=== PATIENT | male | born 1940 | race Caucasian/White ===

== ENCOUNTER 2020-08-07 09:55 | Emergency (ER) | payer MEDICARE, MEDICAID ==
[~2020-08-07] VITALS: Ht 175.3 cm; Wt 114.5 kg
[2020-08-07] MEDS ORDERED: oxyCODONE/APAP 5/325MG (PERCOCET 5) TABLET PO ONE (10:15)
--- NOTE | 2020-08-07 10:28 | ED General ---
General Stated Complaint: FALL History of Present Illness Date Seen by Provider: Aug 07, 2020 Time Seen by Provider: 10:00 Initial Comments The patient is a 79-year-old male with a history of hypertension, hyperlipidemia and ejs-szqwkvq-vwnnfstqy diabetes. He is not on any blood thinners per his report. His tetanus is up-to-date. He presents for evaluation of a mechanical fall down a flight of stairs in his home occurring just prior to arrival. Patient states he was wearing heavy boots and tripped at the top of the stairs and fell down the stairs onto the concrete floor of his basement. He struck his head but there was no loss of consciousness, nausea or vomiting or amnesia to events. Patient was able to get back up and in fact drove himself here to the emergency department for evaluation. He is alert and oriented and in no acute distress. He reports pain primarily to his left hand and thumb; there is an apparent deformity to the hand and a laceration to the volar aspect of the left thumb. There is also contusion and abrasion noted to his right forehead and right periorbital region. He has abrasions to his bilateral knees and to his right elbow as well but reports that these do not hurt. He denies weakness, numbness, tingling, neck stiffness/pain/meningismus, vision changes, shortness of breath, chest or chest wall pain, abdominal pain, back pain, hip pain, pain to right arm or bilateral legs. Vital signs are appropriate here. The patient ambulated in with a narrow, steady gait. Allergies and Home Medications Allergies Coded Allergies: No Known Drug Allergies (Unverified , 08/07/20) Patient Home Medication List Home Medication List Reviewed: Yes Review of Systems Review of Systems Constitutional: see HPI All Other Systems Reviewed Negative Unless Noted: Yes (Negative excepted noted.) Past Tsemmzb-Moduua-Rbppbn Hx Past Med/Social Hx: Reviewed Nursing Past Med/Soc Hx Patient Social History Recent Foreign Travel: No Contact w/Someone Who Travel: No Family Medical History Reviewed Nursing Family Hx Physical Exam Vital Signs Vital Signs - First Documented Capillary Refill : Height, Weight, BMI Height: '" Weight: lbs. oz. kg; BMI Method: General Appearance: No Apparent Distress Comments This is an elderly male appearing nontoxic and in no acute distress. Head is normocephalic and with right forehead and right periorbital contusion, abrasion and mild swelling. No hemotympanum bilaterally. No instability of the midface. No malocclusion. No signs basilar fracture. No other signs of trauma to head or scalp or face or neck. Neck is supple and entirely nontender. Oropharynx is moist. No dental injury noted. Examination of the back reveals no erythema, warmth, swelling, step-offs or deformities and no abrasions or contusions seen. Lungs are clear to auscultation at all stations. Examination of the chest wall reveals no erythema, warmth, swelling, abrasion, contusion, paradoxical movement, crepitus or other acute abnormality. Abdomen is soft, nontender and nondistended. Skin is warm and dry without cyanosis, clubbing or edema. Psychiatrically, the patient demonstrates appropriate mood and affect and is alert. Neurologically, cranial nerves II through XII are intact and there are no lateralizing deficits noted. Speech is normal. Leg which is normal. Coordination is normal. There is no dysmetria uzkubj-lv-dhiv or hiyz-qh-ewni bilaterally. Strength is 5 out of 5 in all joints of bilateral upper and lower extremity. Sensation is intact to light touch in bilateral upper and lower extremities. Patient and relates with a narrow, steady gait here in the emergency department. He is alert and oriented 4. From a musculoskeletal standpoint, there is an apparent closed deformity to the dorsal aspect of the left hand, radial side, with associated tenderness. There is a hemostatic linear transverse laceration to the volar aspect of the left thumb distal to the IP joint on that side. Left thumb and rest of left upper extremity is neurovascularly intact with strength 5 out of 5, sensation intact to light touch in all nerve distortions, radial pulse 2+, capillary refill less than 2 seconds, hand warm and well-perfused. No pain with ranging of any other joint of the left or right upper extremities or bilateral lower extremities, all of which are neurovascularly intact with 2+ and equal DP, PT and radial pulses noted. There are mild abrasions noted to bilateral knees without any discomfort with ranging noted. There is a skin tear noted to the right upper arm above the elbow without any discomfort or pain with ranging of that extremity noted. Procedures/Interventions Wound Location: Other Other Wound Location Left thumb Wound's Depth, Shape: linear, sub Q Wound Explored: no foreign body removed Irrigated w/ Saline (ccs): 1000 Anesthesia: Lidocaine w/ Epi Volume Anesthetic (ccs): 6 Suture: Ethlion Suture Size: 4-0 Number of Sutures: 13 Layer Closure?: 1 Progress Tolerated well, no complications, NVI to L thumb tip and rest of L hand post- procedure Splinting and Joint Reduction : Location: Left thumb IP joint Pre-Proc Neuro Vasc Exam: normal Post-Proc Neuro Vasc Exam: normal Reduction Attempts: 1 Pre-Procedure NV Exam: Yes post joint reduction film: joint reduced Arm Sling: Large Splints: Thumb/Wrist Spica Progress/Results/Core Measures Suspected Sepsis SIRS Temperature: Pulse: Respiratory Rate: Laboratory Tests 08/07/20 11:40: White Blood Count 8.6 Blood Pressure / Mean: Laboratory Tests 08/07/20 11:40: Creatinine 1.06, INR Comment 1.0, Platelet Count 174, Total Bilirubin 0.3 Results/Orders Lab Results Laboratory Tests Test 08/07/20 11:40 Range/Units White Blood Count 8.6 4.3-11.0 10^3/uL Red Blood Count 4.59 4.35-5.85 10^6/uL Hemoglobin 13.6 13.3-17.7 G/DL Hematocrit 41 40-54 % Mean Corpuscular Volume 90 80-99 FL Mean Corpuscular Hemoglobin 30 25-34 PG Mean Corpuscular Hemoglobin Concent 33 32-36 G/DL Red Cell Distribution Width 14.4 10.0-14.5 % Platelet Count 174 130-400 10^3/uL Mean Platelet Volume 10.6 H 7.4-10.4 FL Prothrombin Time 13.5 12.2-14.7 SEC INR Comment 1.0 0.8-1.4 Activated Partial Thromboplast Time 27 24-35 SEC Sodium Level 142 135-145 MMOL/L Potassium Level 4.3 3.6-5.0 MMOL/L Chloride Level 107 98-107 MMOL/L Carbon Dioxide Level 25 21-32 MMOL/L Anion Gap 10 5-14 MMOL/L Blood Urea Nitrogen 21 H 7-18 MG/DL Creatinine 1.06 0.60-1.30 MG/DL Estimat Glomerular Filtration Rate > 60 BUN/Creatinine Ratio 20 Glucose Level 102 70-105 MG/DL Calcium Level 9.6 8.5-10.1 MG/DL Corrected Calcium 9.3 8.5-10.1 MG/DL Total Bilirubin 0.3 0.1-1.0 MG/DL Aspartate Amino Transf (AST/SGOT) 26 5-34 U/L Alanine Aminotransferase (ALT/SGPT) 26 0-55 U/L Alkaline Phosphatase 90 40-136 U/L Total Protein 7.3 6.4-8.2 GM/DL Albumin 4.4 3.2-4.5 GM/DL My Orders Orders - SREEDHAR TREJO MD Hand 3 View Left (08/07/20 10:15) Finger(S) (08/07/20 10:15) Cbc No Diff (08/07/20 10:15) Comprehensive Metabolic Panel (08/07/20 10:15) Protime With Inr (08/07/20 10:15) Partial Thromboplastin Time (08/07/20 10:15) Oxycodone/Apap 5/325mg Tablet (Percocet (08/07/20 10:15) Ct Head/Face/Cervical Wo (08/07/20 10:15) Lidocaine/Epi 2% 1:100,000 (Xylocaine/Ep (08/07/20 11:35) Lidocaine/Epi 2% 1:100,000 (Xylocaine/Ep (08/07/20 11:45) Lidocaine/Epi 2% 1:100,000 (Xylocaine/Ep (08/07/20 12:00) Cephalexin Capsule (Keflex Capsule) (08/07/20 12:00) Finger(S) (08/07/20 12:39) Medications Given in ED Current Medications Medications Dose Ordered Sig/Ivan Route Start Time Stop Time Status Last Admin Dose Admin Lidocaine/ Epinephrine 20 ml ONCE ONCE INJ 08/07/20 12:00 08/07/20 12:01 DC 08/07/20 12:21 20 ML Oxycodone/ Acetaminophen 1 tab ONCE ONCE PO 08/07/20 10:15 08/07/20 10:18 DC 08/07/20 11:11 1 TAB Vital Signs/I&O 08/07/20 08/07/20 11:41 11:41 Temp 36.6 36.6 Pulse 92 92 Resp 18 18 B/P (MAP) 158/67 (97) 158/67 (97) Pulse Ox 98 98 O2 Delivery Room Air Room Air Capillary Refill : Progress Note : Time: 10:28 Progress Note Completely well-appearing elderly male, community 12 are not on blood thinners, who is ambulatory into the emergency department after a fall down a flight of stairs in his home. Mr. Garcia appears wholly nontoxic but certainly a dangerous mechanism for his fall. We will check basic labs and coags and will obtain advanced imaging of the head, maxillofacial region and cervical spine as noted as well as plain films of the left upper extremity. Tetanus is already up-to-date. We'll give some pain medication for discomfort. We will then reevaluate. 1130: Patient is resting comfortably in no acute distress upon reassessment. Advanced imaging of the head, maxillofacial region and cervical spine is negative for acute traumatic injury. Imaging of the left hand does show a dislo cation of the IP joint of the left thumb; give associated laceration, we'll consider this an open dislocation and will cover with Keflex. Patient also has a second metacarpal fracture on that side. We will reduce the patient's dislocation, repair the associated laceration and splint the hand. He will be provided with a sling and will then follow-up in the orthopedic office after the weekend. He understands and agrees with this plan of care. 1300: Dislocation of first interphalangeal joint reduced by me as per procedure note. Patient tolerated well and repeat finger films demonstrate reduction of dislocation. Avulsion fractures noted to the joint in question on repeat imaging, along with questionable first metacarpal fracture along with known second metacarpal fracture. We will place splint and put the patient in a sling for comfort, we'll cover as above with Keflex for open fracture/dislocation of the thumb and will refer back to primary care for very close follow-up after the weekend, as well as to orthopedics in [place]. Patient understands that if he feels worse is that of better or develops other new symptoms of concern in the meantime that he will need to return to the emergency department immediately for reevaluation. All questions are answered. Diagnostic Imaging Diagonstic Imaging: CT Comments Date of Exam:08/07/20 CT HEAD/FACE/CERVICAL WO PROCEDURE: CT head, face, and cervical spine without contrast. TECHNIQUE: Multiple contiguous axial images were obtained through the head, neck, and facial bones without the use of intravenous contrast. Sagittal and coronal reformations through the cervical spine and facial bones were also performed. Auto Exposure Controls were utilized during the CT exam to meet ALARA standards for radiation dose reduction. DATE: August 07, 2020 COMPARISON: None. INDICATION: 79-year-old male, fall downstairs. Head, face, neck pain. FINDINGS: There is no identified skull fracture. The ventricles and cerebral spinal fluid spaces are of normal size and configuration for the patient's age. There is no mass effect or midline shift. There is no acute intracranial hemorrhage. There is no abnormal extra-axial fluid collection. The mandible is intact. The temporomandibular joints are incompletely imaged although are not obviously dislocated. There is no identified displaced nasal bone fracture. There is no identified maxillofacial bone fracture. There is a sclerotic lesion in the right ethmoidal air cells which may relate to a small osteoma. There is no air-fluid level in the paranasal sinuses. The globes are grossly intact. There is no retro-orbital hematoma. There is no identified facet joint subluxation or dislocation. There is no asymmetric widening of the cervical disc spaces. There is no prominent prevertebral soft tissue swelling. There are multilevel moderate to severe disc degenerative changes of the cervical spine with multilevel posterior disc osteophyte complexes. CT is limited for assessment of disc pathology as well as additional nonbloody causes of pathology in the spinal canal. There is no identified acute fracture of the cervical spine. The visualized portions of the lung apices are clear. There are bilateral carotid vascular calcifications. IMPRESSION: 1. No identified acute intracranial abnormality. 2. No identified acute maxillofacial bone fracture. 3. No identified acute posttraumatic abnormality of the cervical spine. 4. Multilevel degenerative changes of the cervical spine. Dictated by: Dictated on workstation # [id number] Dict: 08/07/20 1057 Trans: 08/07/20 1130 [facility] [id number] Interpreted by: REJI DIEGO MD Electronically signed by: REJI DIEGO MD 08/07/20 1130 NAME: TOD GARCIA [facility] REC#: [id number] PT STATUS: REG ER : 1940 PHYSICIAN: SREEDHAR TREJO MD ADMIT DATE: 08/07/20/ER FS Signed Date of Exam:08/07/20 HAND 3 VIEW LEFT EXAMINATION: Left hand radiographs, 3 views. COMPARISON: None. HISTORY: 79-year-old male, injury. FINDINGS: The first distal phalanx is dorsally dislocated at the first interphalangeal joint. There is an ossification adjacent to the first interphalangeal joint which may relate to a displaced fracture fragment. There is a comminuted and displaced and abnormally angulated fracture centered in the region of the distal metaphysis of the second metacarpal without identified intra-articular fracture extension. IMPRESSION: 1. The first distal phalanx is dorsally dislocated at the first interphalangeal joint. Ossification adjacent to the first interphalangeal joint likely relates to a displaced fracture fragment. 2. Comminuted, displaced, and abnormally angulated fracture of the distal aspect of the second metacarpal without identified intra-articular fracture extension. Dictated by: Dictated on workstation # [id number] Dict: 08/07/20 1106 Trans: 08/07/20 1130 [facility] [id number] Interpreted by: REJI DIEGO MD Electronically signed by: REJI DIEGO MD 08/07/20 1130 NAME: TOD GARCIA [facility] REC#: [id number] PT STATUS: REG ER : 1940 PHYSICIAN: SREEDHAR TREJO MD ADMIT DATE: 08/07/20/ER FS Signed Date of Exam:08/07/20 HAND 3 VIEW LEFT EXAMINATION: Left hand radiographs, 3 views. COMPARISON: None. HISTORY: 79-year-old male, injury. FINDINGS: The first distal phalanx is dorsally dislocated at the first interphalangeal joint. There is an ossification adjacent to the first interphalangeal joint which may relate to a displaced fracture fragment. There is a comminuted and displaced and abnormally angulated fracture centered in the region of the distal metaphysis of the second metacarpal without identified intra-articular fracture extension. IMPRESSION: 1. The first distal phalanx is dorsally dislocated at the first interphalangeal joint. Ossification adjacent to the first interphalangeal joint likely relates to a displaced fracture fragment. 2. Comminuted, displaced, and abnormally angulated fracture of the distal aspect of the second metacarpal without identified intra-articular fracture extension. Dictated by: Dictated on workstation # [id number] Dict: 08/07/20 1106 Trans: 08/07/20 1130 [facility] [phone] Interpreted by: REJI DIEGO MD Electronically signed by: REJI DIEGO MD 08/07/20 1130 NAME: TOD GARCIA [facility] REC#: [id number] PT STATUS: REG ER : 1940 PHYSICIAN: SREEDHAR TREJO MD ADMIT DATE: 08/07/20/ER FS Draft Date of Exam:08/07/20 FINGER(S) INDICATION: Left hand injury There is no evidence of dislocation. Comminuted angulated fracture of the distal 2nd metacarpal shaft has a similar appearance when compared to previous study. There is fragmentation at the base of the 1st distal phalanx compatible with avulsion fractures. There is also the suggestion of possible nondisplaced fracture at the base of 1st metacarpal which does not appear to extend to the articular surface. IMPRESSION: Multiple fractures are present involving the 1st distal phalanx and 2nd metacarpal with possible involvement at the base of 1st metacarpal. There is no dislocation. Dictated on workstation # [id number] Dict: 08/07/20 1249 Trans: 08/07/20 1252 [facility] [phone] Interpreted by: KAITY GONZALEZ MD Electronically signed by: Departure Impression Primary Impression: Fall down stairs Qualified Codes: W10.8XXA - Fall (on) (from) other stairs and steps, initial encounter Additional Impressions: Contusion of forehead Qualified Codes: S00.83XA - Contusion of other part of head, initial encounter Laceration of left thumb without foreign body without damage to nail Qualified Codes: S61.012A - Laceration without foreign body of left thumb without damage to nail, initial encounter Dislocation of left thumb Qualified Codes: S63.105A - Unspecified dislocation of left thumb, initial encounter Fx metacarpal shaft-closed Qualified Codes: S62.321A - Displaced fracture of shaft of second metacarpal bone, left hand, initial encounter for closed fracture Disposition: HOME, SELF-CARE Condition: Improved Departure-Patient Inst. Referrals: CHICA CHANCE DO (PCP/Family) Primary Care Physician CRISTIAN BISHOP MD Patient Instructions: Hand Fracture, Laceration Repair Add. Discharge Instructions: Follow-up immediately after the weekend (in the next 2-3 days) in the office with Dr. Bishop of [facility] (the bone doctor). Please call his office today or if they're closed today, call on Monday morning and let them know that you're to be worked in for an appointment early this coming week. Take the Keflex antibiotic daily as prescribed until it is completely gone. Take Tylenol every 6 hours as needed for pain and you may take a tramadol pill every 6 hours as needed for pain that is not well-controlled with Tylenol on its own. Keep your splint clean and dry. Use the sling for comfort, but you may move your arm out of the sling as often as you would like to. Be careful because tramadol can make you sleepy [address] or work or operate machinery while taking it. Return to the emergency department right away with worsening symptoms of any kind or with any other new symptoms of concern. Scripts Tramadol HCl (Tramadol HCl) 50 Mg Tablet 50 MG PO Q6H PRN for PAIN-BREAKTHROUGH MDD 3 tabs for 3 Days, #10 TAB 0 Refills Prov: SREEDHAR TREJO MD 08/07/20 Acetaminophen (Tylenol) 325 Mg Capsule 650 MG PO Q6H for Pain, #50 CAP Prov: SREEDHAR TREJO MD 08/07/20 Cephalexin (Keflex) 500 Mg Capsule 500 MG PO Q6H for 10 Days, #40 CAP Prov: SREEDHAR TREJO MD 08/07/20 SREEDHAR TREJO MD Aug 07, 2020 10:28
--- NOTE | 2020-08-07 11:12 | Diagnostic Imaging Report ---
EXAMINATION: Left thumb radiographs, 2 views. COMPARISON: None. HISTORY: 79-year-old male, fall. Pain and laceration of the thumb. FINDINGS: The first distal phalanx is dorsally dislocated at the first interphalangeal joint. There is an ossification adjacent to this articulation which may relate to a displaced fracture fragment. There is no identified radiopaque foreign body. There is a comminuted displaced and abnormally angulated fracture of the distal aspect of the second metacarpal without identified intra-articular fracture extension. IMPRESSION: 1. The first distal phalanx is dorsally dislocated at the first interphalangeal joint. Ossification adjacent to the level of the first interphalangeal joint likely relates to a displaced fracture fragment. 2. Comminuted displaced and abnormally angulated fracture centered in the region of the distal metaphysis of the second metacarpal without identified intra-articular fracture extension. 3. No identified radiopaque foreign body. Dictated by: Dictated on workstation # [id number]
--- NOTE | 2020-08-07 11:14 | Diagnostic Imaging Report ---
PROCEDURE: CT head, face, and cervical spine without contrast. TECHNIQUE: Multiple contiguous axial images were obtained through the head, neck, and facial bones without the use of intravenous contrast. Sagittal and coronal reformations through the cervical spine and facial bones were also performed. Auto Exposure Controls were utilized during the CT exam to meet ALARA standards for radiation dose reduction. DATE: August 07, 2020 COMPARISON: None. INDICATION: 79-year-old male, fall downstairs. Head, face, neck pain. FINDINGS: There is no identified skull fracture. The ventricles and cerebral spinal fluid spaces are of normal size and configuration for the patient's age. There is no mass effect or midline shift. There is no acute intracranial hemorrhage. There is no abnormal extra-axial fluid collection. The mandible is intact. The temporomandibular joints are incompletely imaged although are not obviously dislocated. There is no identified displaced nasal bone fracture. There is no identified maxillofacial bone fracture. There is a sclerotic lesion in the right ethmoidal air cells which may relate to a small osteoma. There is no air-fluid level in the paranasal sinuses. The globes are grossly intact. There is no retro-orbital hematoma. There is no identified facet joint subluxation or dislocation. There is no asymmetric widening of the cervical disc spaces. There is no prominent prevertebral soft tissue swelling. There are multilevel moderate to severe disc degenerative changes of the cervical spine with multilevel posterior disc osteophyte complexes. CT is limited for assessment of disc pathology as well as additional nonbloody causes of pathology in the spinal canal. There is no identified acute fracture of the cervical spine. The visualized portions of the lung apices are clear. There are bilateral carotid vascular calcifications. IMPRESSION: 1. No identified acute intracranial abnormality. 2. No identified acute maxillofacial bone fracture. 3. No identified acute posttraumatic abnormality of the cervical spine. 4. Multilevel degenerative changes of the cervical spine. Dictated by: Dictated on workstation # [id number]
--- NOTE | 2020-08-07 11:15 | Diagnostic Imaging Report ---
EXAMINATION: Left hand radiographs, 3 views. COMPARISON: None. HISTORY: 79-year-old male, injury. FINDINGS: The first distal phalanx is dorsally dislocated at the first interphalangeal joint. There is an ossification adjacent to the first interphalangeal joint which may relate to a displaced fracture fragment. There is a comminuted and displaced and abnormally angulated fracture centered in the region of the distal metaphysis of the second metacarpal without identified intra-articular fracture extension. IMPRESSION: 1. The first distal phalanx is dorsally dislocated at the first interphalangeal joint. Ossification adjacent to the first interphalangeal joint likely relates to a displaced fracture fragment. 2. Comminuted, displaced, and abnormally angulated fracture of the distal aspect of the second metacarpal without identified intra-articular fracture extension. Dictated by: Dictated on workstation # [id number]
[2020-08-07] MEDS ORDERED: LIDOCAINE/EPI 2% 1:100,00 (XYLOCAINE) 20 ML VIAL ONE (11:35)
[2020-08-07] MEDS ORDERED: LIDOCAINE/EPI 2% 1:100,00 (XYLOCAINE) 20 ML VIAL INJ ONE ×2 (11:45→12:00)
[2020-08-07 11:53] LABS: HEMOGLOBIN 13.6 G/DL (13.3-17.7); MEAN PLATELET VOLUME 10.6 FL (7.4-10.4); WHITE BLOOD COUNT 8.6 10^3/uL (4.3-11.0)
[2020-08-07] MEDS ORDERED: CEPHALEXIN 250 MG (KEFLEX) CAP PO ONE (12:00)
[2020-08-07 12:08] LABS: ALANINE AMINOTRANSFERASE 26 U/L (0-55); ALBUMIN 4.4 GM/DL (3.2-4.5); ALKALINE PHOSPHATASE 90 U/L (40-136); BILIRUBIN,TOTAL 0.3 MG/DL (0.1-1.0); BUN/CREATININE RATIO 20; CALCIUM 9.6 MG/DL (8.5-10.1); CARBON DIOXIDE 25 MMOL/L (21-32); CHLORIDE 107 MMOL/L (98-107); CREATININE SERUM 1.06 MG/DL (0.60-1.30); GFR ESTIMATED > 60; GLUCOSE 102 MG/DL (70-105); POTASSIUM 4.3 MMOL/L (3.6-5.0); SODIUM 142 MMOL/L (135-145); TOTAL PROTEIN 7.3 GM/DL (6.4-8.2)
[2020-08-07 12:17] LABS: PROTHROMBIN TIME PATIENT 13.5 SEC (12.2-14.7)
--- NOTE | 2020-08-07 12:53 | Diagnostic Imaging Report ---
INDICATION: Left hand injury There is no evidence of dislocation. Comminuted angulated fracture of the distal 2nd metacarpal shaft has a similar appearance when compared to previous study. There is fragmentation at the base of the 1st distal phalanx compatible with avulsion fractures. There is also the suggestion of possible nondisplaced fracture at the base of 1st metacarpal which does not appear to extend to the articular surface. IMPRESSION: Multiple fractures are present involving the 1st distal phalanx and 2nd metacarpal with possible involvement at the base of 1st metacarpal. There is no dislocation. Dictated by: Dictated on workstation # [id number]
[2020-08-07] MEDS ORDERED: TRM50T PO (13:12)
[2020-08-07] MEDS ORDERED: CEPH-507 PO (13:12)
[2020-08-07] MEDS ORDERED: ACET325C7 PO (13:12)
[2020-08-07 13:40] VITALS: BP 127/73
== END 2020-08-07 13:44 | disposition home or self-care (01) ==
LOC: ER FS 09:57
DX: S62.321A Displaced fracture of shaft of second metacarpal bone, left hand, initial encounter for closed fracture (principal); S61.012A Laceration without foreign body of left thumb without damage to nail, initial encounter; S41.111A Laceration without foreign body of right upper arm, initial encounter; S00.83XA Contusion of other part of head, initial encounter; S63.105A Unspecified dislocation of left thumb, initial encounter; S80.212A Abrasion, left knee, initial encounter; S80.211A Abrasion, right knee, initial encounter; W10.9XXA Fall (on) (from) unspecified stairs and steps, initial encounter; Y92.009 Unspecified place in unspecified non-institutional (private) residence as the place of occurrence of the external cause
CPT/HCPCS: 29105; 29130; 36415; 70450; 70486; 72125; 73130; 73140; 80053; 85027; 85610; 85730; 99284; A4565